=== PATIENT | male | born 1940 | race Caucasian/White ===

== ENCOUNTER 2019-05-30 17:37 | Inpatient (IN) | payer OTHER ==
[~2019-05-30] VITALS: Ht 177.8 cm; Wt 61.2 kg
[~2019-05-30 17:37] MED LIST: IBUP-2784 GT; INSLAN SQ; METO-391 PO; TRAM50TA2 PO
[2019-05-30 18:11] LABS: BASOPHILS % (AUTO) 0.4 % (0.0-5.0); EOSINOPHILS % (AUTO) 0.7 % (0.0-8.0); HEMATOCRIT 38.1 % (42-54); LYMPHOCYTES % (AUTO) 15.3 % (21.0-51.0); MEAN CORPUSCULAR HEMOGLOBIN 29.3 pg (27.0-33.0); MEAN CORPUSCULAR HGB CONC 33.2 g/dL (32.0-36.0); MEAN CORPUSCULAR VOLUME 88.4 fL (79-99); MONOCYTES % (AUTO) 12.1 % (3.0-13.0); NEUTROPHILS % (AUTO) 71.5 % (40.0-77.0); PLATELET COUNT (AUTO) 206 K/uL (130-400); RED BLOOD CELL COUNT(AUTO) 4.31 MIL/uL (4.50-6.20); RED CELL DISTRIBUTION WIDTH 13.2 % (11.0-15.5); WHITE BLOOD COUNT (AUTO) 7.4 K/uL (4.8-10.8)
[2019-05-30 18:30] LABS: ALBUMIN 2.7 g/dL (3.5-5.0); BILIRUBIN,TOTAL 0.8 mg/dL (0.2-1.0); CREATININE 1.5 mg/dL (0.5-1.5); POTASSIUM 3.8 mmol/L (3.5-5.1)
[2019-05-30 18:34] LABS: CREATINE KINASE, TOTAL 31 U/L (21-232); MYOGLOBIN 75 ng/mL (10-92); TROPONIN I < 0.04 ng/mL (0.00-0.06)
[2019-05-30] MEDS ORDERED: INSULIN HUMULIN R 100 UNIT/ML 3ML ONE (18:51)
[2019-05-30] MEDS ORDERED: SODIUM CHLORIDE 0.9% 100 ML IV ONE (18:52)
[2019-05-30] MEDS ORDERED: SODIUM CHLORIDE 0.9% 1000ML 1,000 ML IV ONE (18:52)
[2019-05-30] MEDS ORDERED: INSULIN REGULAR, HUMAN 3ML 100 UNIT in SODIUM CHLORIDE 0.9% 99 ML IV PRN ×2 (19:30)
[2019-05-30] MEDS ORDERED: MORPHINE SULFATE 2 MG/ML 1ML SYG IV PRN (19:30)
[2019-05-30] MEDS ORDERED: ONDANSETRON HCL 4 MG/2 ML VIAL IV PRN (19:30)
[2019-05-30] MEDS ORDERED: DEXTROSE 5 %-0.45 % NACL 1,000 ML IV PRN (19:30)
[2019-05-30] MEDS ORDERED: ACETAMINOPHEN 325 MG TAB PO PRN ×2 (19:30)
[2019-05-30] MEDS: SODIUM CHLORIDE 0.9% 1000ML 1,000 ML IV SCH (19:30)
[2019-05-30] MEDS ORDERED: LACTULOSE 20 GM/30 ML UDCUP PO PRN (19:30)
[2019-05-30] MEDS ORDERED: SODIUM CHLORIDE 0.9% 1000ML 1,000 ML IV SCH (19:30)
[2019-05-30 19:31] LABS: ABG BASE EXCESS 0.7 mmol/L (-2.0-3.0); ABG HCO3 22.8 mmol/L (21.0-28.0); ABG OXYGEN SATURATION 96.4 % (95.0-99.0); ABG PCO2 30 mmHg (35-48)
[2019-05-30 20:33] LABS: HEMOGLOBIN A1C 13.8 % (4.0-6.0)
[2019-05-30 21:05] LABS: APPEARANCE,URINE Clear (CLEAR); BILIRUBIN,URINE Negative (NEGATIVE); COLOR,URINE Yellow (YELLOW); GLUCOSE, URINE (UA) >=1000 mg/dL (NEGATIVE); KETONES,URINE Trace mg/dL (NEGATIVE); LEUKOCYTE ESTERASE ,URINE Negative (NEGATIVE); NITRATE,URINE Negative (NEGATIVE); OCCULT BLOOD,URINE Negative (NEGATIVE); PROTEIN,URINE Negative (NEGATIVE); UROBILINOGEN,URINE 0.2 mg/dL (0.2-1.0)
[2019-05-30] MEDS ORDERED: FAMOTIDINE/PF 20 MG/2 ML VIAL IV ONE (21:14)
[2019-05-30] MEDS ORDERED: SODIUM CHLORIDE 0.9% 1000ML 2,000 ML IV ONE (21:15)
[2019-05-30 21:18] LABS: BACTERIA,URINE Rare /HPF (None Seen); RBC,URINE 0-1 /HPF (0-1); WBC,URINE 0-1 /HPF (0-1)
[2019-05-30 21:19] LABS: MUCUS,URINE Few LPF (None Seen); SQUAMOUS EPITHELIAL CELL,UR 0-2 /HPF (0-2)
[2019-05-30] MEDS ORDERED: DEXTROSE 5 %-0.45 % NACL 1,000 ML IV ONE (23:38)
[2019-05-31 05:00] LABS: BASOPHILS % (AUTO) 0.9 % (0.0-5.0); EOSINOPHILS % (AUTO) 1.5 % (0.0-8.0); HEMATOCRIT 34.1 % (42-54); LYMPHOCYTES % (AUTO) 14.8 % (21.0-51.0); MEAN CORPUSCULAR HEMOGLOBIN 29.9 pg (27.0-33.0); MEAN CORPUSCULAR HGB CONC 34.5 g/dL (32.0-36.0); MEAN CORPUSCULAR VOLUME 86.6 fL (79-99); MONOCYTES % (AUTO) 12.2 % (3.0-13.0); NEUTROPHILS % (AUTO) 70.6 % (40.0-77.0); NUCLEATED RED BLOOD CELLS 0.1 % (0.0-0.19); PLATELET COUNT (AUTO) 154 K/uL (130-400); RED BLOOD CELL COUNT(AUTO) 3.94 MIL/uL (4.50-6.20); RED CELL DISTRIBUTION WIDTH 12.9 % (11.0-15.5); WHITE BLOOD COUNT (AUTO) 9.2 K/uL (4.8-10.8)
[2019-05-31 05:18] LABS: CREATININE 0.9 mg/dL (0.5-1.5)
[2019-05-31 05:23] LABS: POTASSIUM 2.9 mmol/L (3.5-5.1)
[2019-05-31 06:00] LABS: CREATININE 0.8 mg/dL (0.5-1.5)
[2019-05-31 06:03] LABS: POTASSIUM 2.9 mmol/L (3.5-5.1)
[2019-05-31] MEDS ORDERED: POTASSIUM CHLORIDE 10MEQ/100ML 100 ML IV ONE ×2 (06:14→07:35)
[2019-05-31] MEDS ORDERED: DEXTROSE 5 %-0.45 % NACL 1,000 ML IV ONE (07:21)
[2019-05-31] MEDS: FAMOTIDINE/PF 20 MG/2 ML VIAL IV SCH (09:00)
[2019-05-31] MEDS: ENOXAPARIN SODIUM 40 MG/0.4 ML SYRINGE SQ SCH (09:00)
[2019-05-31] MEDS ORDERED: ENOXAPARIN SODIUM 40 MG/0.4 ML SYRINGE SQ ONE (09:07)
[2019-05-31 16:00] VITALS: BP 150/60
[2019-05-31] MEDS: INSULIN LISPRO 100 UNIT/ML 3ML SQ SCH ×4 (18:04→21:42)
[2019-05-31 19:05] VITALS: BP 113/51
[2019-05-31] MEDS: INSULIN GLARGINE 100 UNITS/ML 10 ML VIAL SQ SCH ×2 (21:00→21:41)
[2019-05-31] MEDS: SODIUM CHLORIDE 0.9% 1000ML 1,000 ML IV SCH (21:40)
[2019-06-01] VITALS (7 sets, daily range): BP systolic 99–136; BP diastolic 58–65
[2019-06-01 04:53] LABS: HEMATOCRIT 36.3 % (42-54); MEAN CORPUSCULAR HGB CONC 33.8 g/dL (32.0-36.0); MEAN CORPUSCULAR VOLUME 88.7 fL (79-99); NUCLEATED RED BLOOD CELLS 0.1 % (0.0-0.19); PLATELET COUNT (AUTO) 163 K/uL (130-400); RED BLOOD CELL COUNT(AUTO) 4.09 MIL/uL (4.50-6.20); RED CELL DISTRIBUTION WIDTH 13.3 % (11.0-15.5); WHITE BLOOD COUNT (AUTO) 11.3 K/uL (4.8-10.8)
[2019-06-01 05:19] LABS: ALBUMIN 2.2 g/dL (3.5-5.0); BILIRUBIN,TOTAL 0.6 mg/dL (0.2-1.0); MAGNESIUM 1.5 mg/dL (1.80-2.40); PHOSPHORUS 2.2 mg/dL (2.5-4.9); POTASSIUM 3.2 mmol/L (3.5-5.1); THYROID STIMULATING HORMONE 1.24 uIU/mL (0.36-3.74); TOTAL PROTEIN, SERUM 5.4 g/dL (6.0-8.3)
--- NOTE | 2019-06-01 08:52 | NUR ---
PATIENT UPDATE Pt refused his insulin coverage last night for a blood sugar of 258, signed refusal paper, wants the med given n the am only. Started coughing intermittently, TOÑO Rebollar made aware, pt was on ivf of NS at 125 cc/hr, rate cut down to 50 cc's per hour. Noted ulcers on the rt heel, plantar aspect of the rt great toe and the sacral area. Pt was given a bedbath by the MANAGER WORKERS COMPENSATION, waffle mattress applied. Pt noted with periods of disorientation during the night, asking for a knife to cut off his johnson catheter, pt reoriented x 3.
[2019-06-01] MEDS: SODIUM CHLORIDE 0.9% 1000ML 1,000 ML IV SCH (09:10)
[2019-06-01] MEDS: FAMOTIDINE/PF 20 MG/2 ML VIAL IV SCH (09:10)
[2019-06-01] MEDS: ENOXAPARIN SODIUM 40 MG/0.4 ML SYRINGE SQ SCH (09:11)
[2019-06-01] MEDS: INSULIN LISPRO 100 UNIT/ML 3ML SQ SCH ×7 (09:16→20:54)
--- NOTE | 2019-06-01 11:30 | NUR ---
INITIAL MET W PT; SLEEPY BUT ORIENTED X3; STATES THAT HE HAS BEEN TRAVELLING DOWN HERE- CAME TO VISIT-EX [facility] IN ARE[facility], BUT.. VISIT DID NOT DIRECTOR [facility] PLANNED, AND WAS UNDECIDED ABOUT NEXT DESTINATION. LATELY HAS NOT BEEN FEELING WELL AND ADMITS TO NOT LOOKING AFTER HIMSELF. PT LIVE IN [place], HAS A PROPERTY THERE AND STATES IS INDEPENDENT / ACTIVE. HAS HAD A BKA LEFT SIDE FOR MANY YEARS, AND WALKS WITH PROSTHESIS WHICH IS IN HIS CAR . ADDRESS CHANGED ON FACE SHEET AND UPDATED CONTACTS.SPOKE TO SISTER APRIL ON THE PHONE AND WAS ADVISED BY RN THAT DAUGHTER HAD CALLED LAST EVENING. PT WILLING TO GO TO A FACILITY FOR REHAB IF PT NOTES REVEAL THE NEED. PT WANTS TO BE WELL ENOUGH TO TRAVEL BACK TO HIS HOME IN [place] AFTER THAT WILL AWAIT RECOMMENDATIONS D Addendum: 06/02/19 at 1237 by REJI DARLING RN Amended: Links added.
[2019-06-01] MEDS: POTASSIUM CHLORIDE 10MEQ/100ML 100 ML IV PRN ×2 (15:43→18:27)
--- NOTE | 2019-06-01 16:48 | NUR ---
RD NOTIFICATION Dx: Uncontrolled Hyperglycemia. Hx: DM, HTN, Hyperlipidemia. Diet: 75gmCCD. LBM: 05/29; unable to pass BM. PO intake 100% and has good appetite as per pt. Pt stated he has been on the road for several days but eats well. Pt does not follow any specific diet. RD encouraged pt to make small dietary changes to better control BG levels. RD provided DM diet and nutrition education. Pt seemed to understand dietary recommendations and verbalized understanding. Education materials provided. RD recommends continue current diet. Offer Glucerna TID and Armando BID. Recommend a stool softener. RD provided DM diet and nutrition education. RD will follow up as needed. Sonia Huynh MS, RDN Addendum: 06/01/19 at [address] RD Amended: Links added.
--- NOTE | 2019-06-01 16:49 | NUR ---
DIET EDUCATION Pt stated he has been on the road for several days but eats well. Pt does not follow any specific diet. RIVKA encouraged pt to make small dietary changes to better control BG levels. RIVKA provided DM diet and nutrition education. Pt seemed to understand dietary recommendations and verbalized understanding. Education materials provided. Addendum: 06/01/19 at [address] RD Amended: Links added.
--- NOTE | 2019-06-01 17:15 | NUR ---
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 Addendum: 06/01/19 at 1718 by EMILEE HICKS LVN LVN W Amended: Links added.
[2019-06-01] MEDS ORDERED: MAGNESIUM 2GM PREMIX 50ML 50 ML IV PRN (20:45)
[2019-06-01] MEDS: INSULIN GLARGINE 100 UNITS/ML 10 ML VIAL SQ SCH (20:55)
[2019-06-01] MEDS ORDERED: BENZONATATE 100 MG CAPSULE PO ONE (23:56)
[2019-06-02] VITALS (7 sets, daily range): BP systolic 110–128; BP diastolic 50–64
[2019-06-02] MEDS: SODIUM CHLORIDE 0.9% 1000ML 1,000 ML IV SCH (04:44)
[2019-06-02 06:06] LABS: HEMATOCRIT 32.2 % (42-54); MEAN CORPUSCULAR HEMOGLOBIN 29.5 pg (27.0-33.0); MEAN CORPUSCULAR HGB CONC 34.2 g/dL (32.0-36.0); MEAN CORPUSCULAR VOLUME 86.3 fL (79-99); NUCLEATED RED BLOOD CELLS 0.1 % (0.0-0.19); PLATELET COUNT (AUTO) 167 K/uL (130-400); RED BLOOD CELL COUNT(AUTO) 3.73 MIL/uL (4.50-6.20); RED CELL DISTRIBUTION WIDTH 13.2 % (11.0-15.5); WHITE BLOOD COUNT (AUTO) 8.2 K/uL (4.8-10.8)
[2019-06-02 06:15] LABS: CREATININE 0.8 mg/dL (0.5-1.5); MAGNESIUM 2.1 mg/dL (1.80-2.40)
[2019-06-02] MEDS: INSULIN LISPRO 100 UNIT/ML 3ML SQ SCH ×7 (07:09→21:45)
[2019-06-02] MEDS ORDERED: POTASSIUM CHLORIDE 20MEQ/100ML 100 ML IV PRN (08:15)
[2019-06-02] MEDS ORDERED: LIDOCAINE HCL-MPF 1% 2ML VIAL IV PRN (08:15)
[2019-06-02] MEDS ORDERED: POTASSIUM CHLORIDE 20 MEQ ERTAB PO PRN (08:15)
[2019-06-02] MEDS: FAMOTIDINE/PF 20 MG/2 ML VIAL IV SCH (10:58)
[2019-06-02] MEDS: HONEY 1 APPL/ML TUBE TP SCH (10:59)
[2019-06-02] MEDS: BENZONATATE 100 MG CAPSULE PO SCH ×2 (10:59→21:41)
[2019-06-02] MEDS: METOPROLOL TARTRATE 25 MG TAB PO SCH ×2 (10:59→21:41)
[2019-06-02] MEDS: ENOXAPARIN SODIUM 40 MG/0.4 ML SYRINGE SQ SCH (11:00)
[2019-06-02] MEDS: POTASSIUM CHLORIDE 10% ELIXIR 20 MEQ/15 ML UDCUP PO PRN ×2 (13:39→16:42)
--- NOTE | 2019-06-02 17:36 | NUR ---
SUMMARY OF DISCHARGE CHALLENGES ORDER FOR SNF REFERRAL, CONSENT FOR [facility], ANY IN NETWORK, REFERRAL TO [facility] HERE, REFERRAL SENT [facility]CEPT [facility], CALL BACK THAT THEY ARE NOT IN NETWORK, FACE SHEET TO [facility], CALL BACK, NO ONE IN NETWORK IN [place], MAY BE POSSIBLE TO DO A WAIVER/CONTRACT. WENT TO PT'S VEHICLE TO GET PROTHESIS, WALKED WITH SECURITY, WHITE SHAYLA WAGON - W FLAT TIRE, VERY FULL OF ITEMS, ROLLING WALKER SEEN, NO PROSTHESIS VISIBLE IN THE CAR CALL TO [facility], RELAYED INFORMATION, AND THAT [facility] WOULD CALL AN APS Wednesday. WILL ATTEMPT TO REACH FAMILY CALL TO DAUGHTER SHAYLA LEONARD [phone] NO ANSWER CALL TO SISTER- STATES HER BROTHER HAS ALWAYS BEEN A TRAVELLER, COMES AND GOES, STATES HE COULD DRIVE AND NAVIGATE AND LOOK AFTER HIMSELF WALKING W PROTHESIS BUT NOT REALLY WELL, STATES THAT WHEN SHE TALKED TO HIM LAST NIGHT HIS SPEECH WAS DIFFERENT- SLURRED GAVE SHAYLA'S PHONE NUMBER AT [phone] -CALL MADE- SHAYLA STATES FATHER IS VERY DEAF AND NOT VERY SOCIABLE- AND HAS SOME BAD HABITS- AND SHE IS UNWILLING TO HAVE HIM COME AND LIVE WITH HER. WILLING TO COMMUNICATE WITH SNF FOR [facility] OPERATOR PLACEMENT POSSIBILITY. EXPLAINED SOME OF THE CHALLENGES IN PLACEMENT FOR PATIENT - NOT SURE WHETHER HE IS AT BASELINE OR NOT Addendum: 06/02/19 at 1809 by REJI DARLING RN CM Amended: Links added.
--- NOTE | 2019-06-02 17:37 | NUR ---
EDIT: DISCHARGE CHALLENGES PREVIOUS NOTE REVIEWED- EDIT NEEDED, CM WILL CALL APS ON WEDNESDAY *IF* PATIENT NOT BACK TO REPORTED BASELINE, (IE NOT ABLE TO MAKE DECISIONS) PER FAMILY INFORMATION, PT HAS ALWAYS MADE OWN DECISIONS AND LOOKED AFTER HIMSELF HIS OWN WAY. CONFUSION MAY BE ACUTE, AND TRANSIENT, OR MAY BE SYMPTOM OF DEMENTIA. WILL FOLLOW UP ON WEDNESDAY.
[2019-06-02] MEDS: INSULIN GLARGINE 100 UNITS/ML 10 ML VIAL SQ SCH (21:44)
[2019-06-03 03:47] VITALS: BP 128/55
[2019-06-03] MEDS: SODIUM CHLORIDE 0.9% 1000ML 1,000 ML IV SCH (04:22)
[2019-06-03 04:31] LABS: BASOPHILS % (AUTO) 0.6 % (0.0-5.0); LYMPHOCYTES % (AUTO) 19.8 % (21.0-51.0); MEAN CORPUSCULAR HEMOGLOBIN 29.8 pg (27.0-33.0); MEAN CORPUSCULAR HGB CONC 34.4 g/dL (32.0-36.0); MEAN CORPUSCULAR VOLUME 86.7 fL (79-99); MONOCYTES % (AUTO) 12.2 % (3.0-13.0); NEUTROPHILS % (AUTO) 64.4 % (40.0-77.0); NUCLEATED RED BLOOD CELLS 0.1 % (0.0-0.19); PLATELET COUNT (AUTO) 166 K/uL (130-400); RED BLOOD CELL COUNT(AUTO) 3.69 MIL/uL (4.50-6.20); RED CELL DISTRIBUTION WIDTH 13.4 % (11.0-15.5); WHITE BLOOD COUNT (AUTO) 7.8 K/uL (4.8-10.8)
[2019-06-03 04:52] LABS: CREATININE 0.8 mg/dL (0.5-1.5); POTASSIUM 3.5 mmol/L (3.5-5.1)
[2019-06-03] MEDS: INSULIN LISPRO 100 UNIT/ML 3ML SQ SCH ×5 (06:01→21:16)
[2019-06-03 07:30] VITALS: BP 115/52
[2019-06-03 11:00] VITALS: BP 101/50
[2019-06-03] MEDS: METOPROLOL TARTRATE 25 MG TAB PO SCH ×2 (11:16→21:14)
[2019-06-03] MEDS: BENZONATATE 100 MG CAPSULE PO SCH ×2 (11:16→21:14)
[2019-06-03] MEDS: FAMOTIDINE/PF 20 MG/2 ML VIAL IV SCH (11:17)
[2019-06-03] MEDS: HONEY 1 APPL/ML TUBE TP SCH (11:17)
[2019-06-03] MEDS: ENOXAPARIN SODIUM 40 MG/0.4 ML SYRINGE SQ SCH (11:17)
--- NOTE | 2019-06-03 11:46 | NUR ---
[facility] F/U: f/u call placed to [facility] this am. States still no auth for admission, they will continue to try and obtain a one time contract regis He on Wednesday. CM to continue to follow.
[2019-06-03] MEDS: POTASSIUM CHLORIDE 10% ELIXIR 20 MEQ/15 ML UDCUP PO PRN ×2 (12:24→14:45)
[2019-06-03 16:00] VITALS: BP 120/59
[2019-06-03 20:51] VITALS: BP 136/65
[2019-06-03] MEDS: INSULIN GLARGINE 100 UNITS/ML 10 ML VIAL SQ SCH (21:23)
[2019-06-03 23:59] VITALS: BP 127/90
[2019-06-04] MEDS ORDERED: IPRATROPIUM/ALBUTEROL SULFATE 3 ML SOLUTION IH PRN (00:15)
[2019-06-04] MEDS ORDERED: IPRATROPIUM/ALBUTEROL SULFATE 3 ML SOLUTION IH ONE (00:24)
[2019-06-04 04:08] VITALS: BP 122/62
[2019-06-04 05:34] LABS: BASOPHILS % (AUTO) 0.7 % (0.0-5.0); EOSINOPHILS % (AUTO) 2.9 % (0.0-8.0); HEMATOCRIT 32.5 % (42-54); LYMPHOCYTES % (AUTO) 20.5 % (21.0-51.0); MEAN CORPUSCULAR HEMOGLOBIN 29.3 pg (27.0-33.0); MEAN CORPUSCULAR HGB CONC 33.6 g/dL (32.0-36.0); MEAN CORPUSCULAR VOLUME 87.2 fL (79-99); MONOCYTES % (AUTO) 14.7 % (3.0-13.0); NEUTROPHILS % (AUTO) 61.2 % (40.0-77.0); NUCLEATED RED BLOOD CELLS 0.1 % (0.0-0.19); PLATELET COUNT (AUTO) 217 K/uL (130-400); RED BLOOD CELL COUNT(AUTO) 3.73 MIL/uL (4.50-6.20); RED CELL DISTRIBUTION WIDTH 13.4 % (11.0-15.5); WHITE BLOOD COUNT (AUTO) 6.9 K/uL (4.8-10.8)
[2019-06-04 06:01] LABS: CREATININE 0.9 mg/dL (0.5-1.5); POTASSIUM 4.4 mmol/L (3.5-5.1)
[2019-06-04] MEDS: INSULIN LISPRO 100 UNIT/ML 3ML SQ SCH ×7 (06:23→21:16)
--- NOTE | 2019-06-04 06:30 | NUR ---
PATIENT UPDATE Continues to have this intermittent cough despite the cough meds given. [place] FIELD LIABILITY GENERALIST called for possible breathing treatment, duonebs tx q 6h prn started.Pt slept better overnight. Bedbath given by Gail MONK, no complaints of pain. Pt drinking oral fluids adequately, ongoing iv fluids stopped at 0200. Pending a time contract with [facility] on Wednesday.
[2019-06-04 07:30] VITALS: BP 102/58
[2019-06-04 11:00] VITALS: BP 102/57
[2019-06-04] MEDS: SODIUM CHLORIDE 0.9% 1000ML 1,000 ML IV SCH ×2 (11:06→18:09)
[2019-06-04] MEDS: METOPROLOL TARTRATE 25 MG TAB PO SCH ×2 (11:06→21:07)
[2019-06-04] MEDS: FAMOTIDINE/PF 20 MG/2 ML VIAL IV SCH (11:06)
[2019-06-04] MEDS: BENZONATATE 100 MG CAPSULE PO SCH ×2 (11:06→21:07)
[2019-06-04] MEDS: ENOXAPARIN SODIUM 40 MG/0.4 ML SYRINGE SQ SCH (11:07)
[2019-06-04] MEDS: HONEY 1 APPL/ML TUBE TP SCH (11:07)
[2019-06-04] MEDS ORDERED: ACETAMINOPHEN 325 MG TAB PO PRN (14:15)
[2019-06-04 16:00] VITALS: BP 119/59
--- NOTE | 2019-06-04 19:00 | NUR ---
IV Received pt witn No iv access,started a new iv to left hand x 2 attempts,oracio well.
[2019-06-04 19:35] VITALS: BP 113/64
[2019-06-04] MEDS: FAMOTIDINE 20MG TAB 20 MG TAB PO SCH (21:06)
[2019-06-04] MEDS: INSULIN GLARGINE 100 UNITS/ML 10 ML VIAL SQ SCH (21:15)
[2019-06-04 23:30] VITALS: BP 111/60
[2019-06-05 03:25] VITALS: BP 127/68
[2019-06-05] MEDS: SODIUM CHLORIDE 0.9% 1000ML 1,000 ML IV SCH (03:47)
[2019-06-05 05:29] LABS: BASOPHILS % (AUTO) 0.5 % (0.0-5.0); EOSINOPHILS % (AUTO) 3.1 % (0.0-8.0); HEMATOCRIT 32.2 % (42-54); MEAN CORPUSCULAR HEMOGLOBIN 29.8 pg (27.0-33.0); MEAN CORPUSCULAR HGB CONC 34.3 g/dL (32.0-36.0); MONOCYTES % (AUTO) 16.3 % (3.0-13.0); NEUTROPHILS % (AUTO) 60.1 % (40.0-77.0); PLATELET COUNT (AUTO) 209 K/uL (130-400); RED CELL DISTRIBUTION WIDTH 13.4 % (11.0-15.5); WHITE BLOOD COUNT (AUTO) 7.5 K/uL (4.8-10.8)
[2019-06-05] MEDS: INSULIN LISPRO 100 UNIT/ML 3ML SQ SCH ×7 (05:57→20:08)
[2019-06-05 06:01] LABS: CREATININE 0.8 mg/dL (0.5-1.5); POTASSIUM 3.8 mmol/L (3.5-5.1)
[2019-06-05 08:00] VITALS: BP 102/58
--- NOTE | 2019-06-05 08:00 | NUR ---
AM SHIFT ASSESSMENT.
--- NOTE | 2019-06-05 09:30 | NUR ---
LEONARDO DECLINED PT WILL TALKED TO TWISTER TENDER ABOUT DISPOSITION
[2019-06-05] MEDS: FAMOTIDINE 20MG TAB 20 MG TAB PO SCH ×2 (09:55→20:04)
[2019-06-05] MEDS: METOPROLOL TARTRATE 25 MG TAB PO SCH ×2 (09:55→20:04)
[2019-06-05] MEDS: BENZONATATE 100 MG CAPSULE PO SCH ×2 (09:55→20:04)
[2019-06-05] MEDS: ENOXAPARIN SODIUM 40 MG/0.4 ML SYRINGE SQ SCH (09:56)
[2019-06-05] MEDS: HONEY 1 APPL/ML TUBE TP SCH (09:57)
[2019-06-05 12:00] VITALS: BP 112/70
--- NOTE | 2019-06-05 15:53 | NUR ---
THAYER CATH. REMOVED, EMPTIED OF 1700ML OF CLOUDY, STRONG ODOR URINE.
[2019-06-05 16:00] VITALS: BP 107/62
--- NOTE | 2019-06-05 18:00 | NUR ---
HAS VOIDED TWICE SINCE REMOVAL OF THAYER.
[2019-06-05 20:00] VITALS: BP 113/63
[2019-06-05] MEDS: INSULIN GLARGINE 100 UNITS/ML 10 ML VIAL SQ SCH (20:07)
--- NOTE | 2019-06-05 20:08 | NUR ---
MEDS SHIFT ASSESSMENT DONE, PLEASE REFER TO CHART. DUE MEDS ADMINISTERED, TOLERATED WELL. KEPT RESTED AND COMFORTABLE. CALL LIGHT WITHIN REACH. WILL MONITOR PT. Addendum: 06/06/19 at 0049 by DAWSON HAMPTON RN RN Amended: Links added.
[2019-06-06] VITALS: BP 137/70
[2019-06-06] MEDS: SODIUM CHLORIDE 0.9% 1000ML 1,000 ML IV SCH (01:47)
--- NOTE | 2019-06-06 01:47 | NUR ---
ROUNDS PT FAIRLY ASLEEP WITH RESPIRATIONS EVEN AND UNLABORED. NO DISTRESS NOTED. KEPT RESTED AND COMFORTABLE. CALL LIGHT WITHIN REACH. WILL MONITOR PT.
[2019-06-06 04:00] VITALS: BP 116/67
[2019-06-06 05:24] LABS: EOSINOPHILS % (AUTO) 2.6 % (0.0-8.0); HEMATOCRIT 31.6 % (42-54); LYMPHOCYTES % (AUTO) 14.1 % (21.0-51.0); MEAN CORPUSCULAR HEMOGLOBIN 29.4 pg (27.0-33.0); MEAN CORPUSCULAR HGB CONC 33.9 g/dL (32.0-36.0); MEAN CORPUSCULAR VOLUME 86.7 fL (79-99); MONOCYTES % (AUTO) 15.7 % (3.0-13.0); NEUTROPHILS % (AUTO) 66.6 % (40.0-77.0); PLATELET COUNT (AUTO) 242 K/uL (130-400); RED BLOOD CELL COUNT(AUTO) 3.64 MIL/uL (4.50-6.20); RED CELL DISTRIBUTION WIDTH 13.6 % (11.0-15.5); WHITE BLOOD COUNT (AUTO) 9.6 K/uL (4.8-10.8)
[2019-06-06 05:41] LABS: CREATININE 0.9 mg/dL (0.5-1.5); POTASSIUM 3.8 mmol/L (3.5-5.1)
--- NOTE | 2019-06-06 06:22 | NUR ---
ROUNDS PT RESTING WELL, NO CONCERNS VERBALIZED. NO DISTRESS NOTED. KEPT COMFORTABLE IN BED. FOR MORE CARE.
[2019-06-06] MEDS: INSULIN LISPRO 100 UNIT/ML 3ML SQ SCH ×7 (06:26→21:00)
[2019-06-06 07:57] VITALS: BP 125/61
--- NOTE | 2019-06-06 08:38 | NUR ---
DISCHARGE PLAN DIFFICULTY Awaiting SW input. Pt wqill be difficult to discharge and difficult to place. car still stis outside the hospital, with a flat tire and all of pt belongings. somewhere in the vehicle is the pts prosthese, which PT has recommended not be worn. pt has impaired mobility without it. Will reach out to [facility] for possilble LT placemnt if needed after SW has done assessment
[2019-06-06] MEDS: FAMOTIDINE 20MG TAB 20 MG TAB PO SCH ×2 (09:34→21:33)
[2019-06-06] MEDS: METOPROLOL TARTRATE 25 MG TAB PO SCH ×2 (09:34→21:34)
[2019-06-06] MEDS: BENZONATATE 100 MG CAPSULE PO SCH ×2 (09:34→21:33)
[2019-06-06] MEDS: ENOXAPARIN SODIUM 40 MG/0.4 ML SYRINGE SQ SCH (09:35)
[2019-06-06] MEDS: HONEY 1 APPL/ML TUBE TP SCH (09:38)
[2019-06-06 12:00] VITALS: BP 119/64
--- NOTE | 2019-06-06 14:33 | NUR ---
[facility] Per CM notes on 06/02, APS was to be made on Wednesday. Sw called local APS office, no report has been made and pt has no hx with APS.
--- NOTE | 2019-06-06 14:39 | NUR ---
RD NOTIFICATION/ FOLLOW UP Diet: 75gmCCD, Glucerna TID, Armando BID. PO intake 100% and has good appetite. Pt does not like Armando- refusing protein supplement that aids wound healing. LBM: 06/06. RD recommend continue current diet Continue to offer Glucerna TID Monitor po intake and supplement intake daily D/C Armando BID RD recommends 500mg Vitamin C BID and 220 mg Zinc sulfate once daily for 14 days to aid in wound healing RD will monitor and follow up as needed Addendum: 06/06/19 at [address] Amended: Links added.
--- NOTE | 2019-06-06 15:45 | NUR ---
[facility] PATIENT. ADVISED HIM OF THE 'DC TO SNF WHEN ACCEPTED' ORDER. ADIVSED PATIENT THAT HE IS MEDICALLY CLEAR FOR DISCHARGE AND THAT HE HAD NO OUT OF NETWORK BENENFITS FOR A SNF IN THIS STATE- NEEDS TO RETURN TO HOME STATE. PATIENT STATES NOT RETURNING TO HOME STATE- ADVISED PATIENT THEN HE NEEDS TO LOOK FOR AN ALTERNATE MODE OF LONG-TERM . ADVISED PT THAT [facility] MAY BE A GOOD OPTION. PATIENTS VEHICLE HAS FLAT TIRE AT THIS TIME DISCUSSED THE NEED FOR PT TO GIVE OWN INSULIN WITH BEATRIZ. . PT Addendum: 06/06/19 at 1551 by REJI DARLING RN CM Amended: Links added.
[2019-06-06 16:00] VITALS: BP 130/74
--- NOTE | 2019-06-06 16:30 | NUR ---
Sw met with pt who is alert and oriented and states he came to [place] for the warm weather. States he has been coming here for 30years. Pt states he has no family or friends here but he manages on his own. 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 pt states he lives out of his car on his SS benefits of $1500. Pt states he is down to his last $60, believes he might have more but he is not sure. Pt states he must wait till when check comes in. Explained to pt that he no longer meets criteria to remain in the hospital and unfortunately can not remain here till money comes in. Pt understands that he has a flat on car, and states it won't cost much to get it fixed. Pt states he uses walker to get around and it's in his car a long with all his belongings. Pt not opposed to going to group home but prefers to be on his own. Pt states he has been estranged from his kids and family for years. CM informed that no reason for APS report found.
[2019-06-06 19:05] VITALS: BP 119/68
--- NOTE | 2019-06-06 20:15 | NUR ---
GRAY REDDY NP SENIOR LEAD PROJECT MANAGER FOR HOSPITALIST, CALLED AND ASKED ABOUT PT'S IVF. PT ALREADY ON DIABETIC DIET AND ABLE TO EAT AND DRINK FINE. NEW IVF ORDER GIVEN, PLEASE REFER TO CPOE.
--- NOTE | 2019-06-06 21:34 | NUR ---
MEDS SHIFT ASSESSMENT DONE, PLEASE REFER TO CHART. DUE MEDS ADMINISTERED, TOLERATED WELL. KEPT RESTED AND COMFORTABLE. CALL LIGHT WITHIN REACH. WILL MONITOR PT. Addendum: 06/07/19 at 0205 by DAWSON HAMPTON RN RN Amended: Links added.
[2019-06-06] MEDS: INSULIN GLARGINE 100 UNITS/ML 10 ML VIAL SQ SCH (21:40)
[2019-06-07] VITALS (8 sets, daily range): BP systolic 104–137; BP diastolic 51–73
--- NOTE | 2019-06-07 02:00 | NUR ---
ROUNDS PT RESTING WELL, FAIRLY ASLEEP WITH RESPIRATIONS EVEN AND UNLABORED. NO NOTED DISTRESS. KEPT UNDISTURBED FOR NOW. WILL MONITOR PT.
--- NOTE | 2019-06-07 06:00 | NUR ---
ROUNDS PT RESTING WELL, NO DISTRESS NOTED. NO CONCERNS VERBALIZED. KEPT COMFORTABLE. FOR MORE CARE.
[2019-06-07] MEDS: INSULIN LISPRO 100 UNIT/ML 3ML SQ SCH ×7 (06:26→21:00)
--- NOTE | 2019-06-07 08:36 | NUR ---
CELL PHONE Sw assisting with charging pt's cell phone so he can access to bank acct and resources stored on phone.
[2019-06-07] MEDS: METOPROLOL TARTRATE 25 MG TAB PO SCH ×2 (09:05→22:31)
[2019-06-07] MEDS: FAMOTIDINE 20MG TAB 20 MG TAB PO SCH ×2 (09:09→22:31)
[2019-06-07] MEDS: BENZONATATE 100 MG CAPSULE PO SCH ×2 (09:09→22:31)
[2019-06-07] MEDS: ENOXAPARIN SODIUM 40 MG/0.4 ML SYRINGE SQ SCH (09:10)
[2019-06-07] MEDS: HONEY 1 APPL/ML TUBE TP SCH (09:11)
[2019-06-07] MEDS: INSULIN GLARGINE 100 UNITS/ML 10 ML VIAL SQ SCH (22:30)
[2019-06-08 03:58] VITALS: BP 130/63
[2019-06-08] MEDS: INSULIN LISPRO 100 UNIT/ML 3ML SQ SCH ×4 (06:59→12:10)
[2019-06-08] MEDS: BENZONATATE 100 MG CAPSULE PO SCH (07:50)
[2019-06-08] MEDS: METOPROLOL TARTRATE 25 MG TAB PO SCH (07:50)
[2019-06-08] MEDS: FAMOTIDINE 20MG TAB 20 MG TAB PO SCH (07:50)
[2019-06-08] MEDS: ENOXAPARIN SODIUM 40 MG/0.4 ML SYRINGE SQ SCH (07:51)
[2019-06-08] MEDS: HONEY 1 APPL/ML TUBE TP SCH (07:52)
[2019-06-08 08:00] VITALS: BP 139/71
[2019-06-08] MEDS ORDERED: INSLAN SQ (09:17)
[2019-06-08] MEDS ORDERED: METO-391 PO (09:17)
[2019-06-08] MEDS ORDERED: METF-446 PO (09:17)
[2019-06-08 12:00] VITALS: BP 107/59
[2019-06-08 16:00] VITALS: BP 127/81
--- NOTE | 2019-06-08 17:00 | NUR ---
PATIENT GIVEN DISCHARGE INSTRUCTIONS AND VERBALIZED UNDERSTANDING, IV REMOVED WITH CATHETER INTACT PRESSURE HELD TO SITE THEN SITE DRESSED. PATIENT DRESSED IN CLOTHES BROUGHT TO HIM BY CATERING AND EVENTS MANAGER, REVIEWED MEDICATION AND FOLLOW-UP APPOINTMENTS . PATIENT GIVEN ADDRESS TO [employer] AND [employer] AND PRINTED PRESCRIPTIONS WERE GIVEN FOR PATIENT TO GET MEDICATIONS. NO QUESTIONS OR CONCERNS AT THIS TIME. SECURITY NOTIFIED AND CAME TO FLOOR TO ASSIST WITH PATIENT FLAT TIRE .PATIENT TAKING BY WHEELCHAIR TO PARKING LOT BY PCP WITH SECURITY AT SIDE.
== END 2019-06-08 17:35 | disposition home or self-care (01) | DRG 682 ==
LOC: EDH 17:37 → EDHIP 19:30 → 3BH 05-31 15:21
PROVIDERS: ADMIT Internal Medicine; ATTEND Internal Medicine
DX: N17.0 Acute kidney failure with tubular necrosis (principal); E11.00 Type 2 diabetes mellitus with hyperosmolarity without nonketotic hyperglycemic-hyperosmolar coma (NKHHC); E87.1 Hypo-osmolality and hyponatremia; E44.0 Moderate protein-calorie malnutrition; Z68.1 Body mass index [BMI] 19.9 or less, adult; E86.1 Hypovolemia; E87.6 Hypokalemia; L98.419 Non-pressure chronic ulcer of buttock with unspecified severity; E11.22 Type 2 diabetes mellitus with diabetic chronic kidney disease; E78.5 Hyperlipidemia, unspecified; N18.9 Chronic kidney disease, unspecified; Z96.612 Presence of left artificial shoulder joint; R53.81 Other malaise; Z96.651 Presence of right artificial knee joint; Z83.3 Family history of diabetes mellitus; Z89.512 Acquired absence of left leg below knee; Z79.4 Long term (current) use of insulin; Z91.14 Patient's other noncompliance with medication regimen; Z82.5 Family history of asthma and other chronic lower respiratory diseases; Z82.49 Family history of ischemic heart disease and other diseases of the circulatory system; Z82.3 Family history of stroke; Z82.0 Family history of epilepsy and other diseases of the nervous system
CPT/HCPCS: 36415; 36600; 71045; 80048; 80053; 81001; 82550; 82803; 82948; 83036; 83735; 83874; 84100; 84132; 84443; 84484; 85025; 85027; 93005; 94664; 97039; G0378; J1650; J1815; J3475; J3480; J3490; J7030; J7042